=== PATIENT | female | born 1970 | race Caucasian/White ===

== ENCOUNTER 2022-11-19 17:05 | Emergency (ER) | payer BC, OTHER ==
[~2022-11-19] VITALS: Ht 162.6 cm; Wt 65.8 kg
[2022-11-19] MEDS ORDERED: ONDANSETRON HCL/PF 4 MG/2 ML VIAL ONE ×2 (17:23→22:25)
[2022-11-19] MEDS ORDERED: MORPHINE SULFATE INJ 4 MG/ML DISP.SYRIN ONE ×3 (17:24→22:26)
[2022-11-19] MEDS ORDERED: ONDANSETRON HCL/PF 4 MG/2 ML VIAL IVP ONE (17:30)
[2022-11-19] MEDS ORDERED: IV NS 0.9% 1,000 ML BAG IV ONE (17:30)
[2022-11-19] MEDS ORDERED: MORPHINE SULFATE INJ 2 MG/ML DISP.SYRIN IV ONE ×3 (17:30→22:30)
[2022-11-19 17:33] LABS: BASOPHILS % (AUTO) 0.3 % (0.0-2.0); EOSINOPHILS % (AUTO) 0.1 % (0.0-6.0); HEMATOCRIT 49 % (33-45); LYMPHOCYTES # (AUTO) 0.9 K/uL (0.8-4.8); LYMPHOCYTES % (AUTO) 8.5 % (20.0-44.0); MEAN CORPUSCULAR HGB CONC 33 g/dl (31.0-36.0); MEAN CORPUSCULAR VOLUME 89 fL (82-100); MONOCYTES # (AUTO) 0.3 K/uL (0.1-1.30); MONOCYTES % (AUTO) 2.9 % (2.0-12.0); NEUTROPHILS # (AUTO) 9.2 K/uL (1.8-8.9); NEUTROPHILS % (AUTO) 88.2 % (43.0-81.0); PLATELET COUNT (AUTO) 200 K/uL (150-450); RED BLOOD CELL COUNT(AUTO) 5.47 MIL/uL (4.0-5.2); WHITE BLOOD COUNT (AUTO) 10.4 K/uL (4.3-11.0)
[2022-11-19 17:41] LABS: CALCIUM, SERUM 9.4 mg/dL (8.5-10.1); CREATININE 1.1 mg/dL (0.6-1.3); POTASSIUM 3.5 mmol/L (3.5-5.1)
--- NOTE | 2022-11-19 17:46 | NUR ---
Patient came in to the [facility] from home, c/o RLQ pain 3 hours [employer]. On room air, breathing evenly and unlabored. Kept comfortable, will continue to monitor accordingly.
[2022-11-19 17:47] LABS: ALBUMIN 4.4 g/dL (3.4-5.0); BILIRUBIN,DIRECT 0.2 mg/dL (0.0-0.2); BILIRUBIN,TOTAL 0.5 mg/dL (0.2-1.0); TOTAL PROTEIN, SERUM 8.3 g/dL (6.4-8.2)
[2022-11-19] MEDS ORDERED: PIPERACILLIN /TAZOBACTAM 3.375 G in IV D5W 50 ML IV ONE (18:30)
[2022-11-19] MEDS ORDERED: PIPERACILLIN /TAZOBACTAM 3.375 G VIAL IV ONE (19:12)
--- NOTE | 2022-11-19 19:22 | NUR ---
COVID SWAB COLLECTED AND SENT TO LAB
--- NOTE | 2022-11-19 19:40 | NUR ---
Dr Camille loo per Dr Hall.
--- NOTE | 2022-11-19 19:45 | NUR ---
[facility] OB PAGED. DR ECKERT SPEAKING WITH DR GARAY
--- NOTE | 2022-11-19 19:52 | NUR ---
URINE COLLECTED AND SENT TO LAB
[2022-11-19 21:14] LABS: BILIRUBIN,URINE NEGATIVE (NEGATIVE); COLOR,URINE YELLOW (YELLOW); LEUKOCYTE ESTERASE ,URINE NEGATIVE (NEGATIVE); NITRITE, URINE NEGATIVE (NEGATIVE); PROTEIN,URINE NEGATIVE (NEGATIVE); UGLUCOSE NEGATIVE (NEGATIVE); UROBILINOGEN,URINE 0.2 EU/dL (0.2)
--- NOTE | 2022-11-19 21:14 | NUR ---
PT ACCEPTED TO [facility] BY DR GARAY, [place] [address]. # FOR REPORT [phone]
--- NOTE | 2022-11-19 21:23 | NUR ---
[facility] CALLED FOR BLS GOING TO [facility] PER ROLANDO - ETA 90 MIN
[2022-11-19 21:40] LABS: BACTERIA,URINE None seen /HPF (None Seen); MUCUS,URINE Few /LPF (None Seen); URINE AMORPHOUS PHOSPHATES Few /HPF (None Seen); WBC,URINE 0-2 /HPF (0-3)
[2022-11-19] MEDS ORDERED: ONDANSETRON HCL/PF 4 MG/2 ML VIAL IV ONE (22:30)
[2022-11-19 22:31] VITALS: BP 146/73
--- NOTE | 2022-11-19 22:58 | NUR ---
[facility] AT BEDSIDE FOR TRANSPORT TO [facility].
== END 2022-11-19 23:00 | disposition short-term general hospital (02) ==
LOC: ER 17:07
DX: R10.31 Right lower quadrant pain (principal); R11.2 Nausea with vomiting, unspecified; Z20.822 Contact with and (suspected) exposure to COVID-19
CPT/HCPCS: 99291; 74176; 96365; 96375; 96361; 87426; 93005; 96376; 85025; 80048; 87040 ×2; 83690; 80076; 84703; 81001; 36415; 84702; 76856 ×2; J2270 ×3; J2405 ×2; J2543; J7060; J7030; C9803